=== PATIENT | female | born 1985 | race American Indian/Alaskan Native ===

== ENCOUNTER 2019-04-07 23:23 | Emergency (ER) | payer SELFPAY ==
[2019-04-08] MEDS ORDERED: IBUPROFEN 600 MG TAB PO ONE (00:04)
[2019-04-08] MEDS ORDERED: ACETAMINOPHEN 500 MG TAB PO ONE (00:04)
[2019-04-08] MEDS ORDERED: AMOXICILLIN/K CLAV 875/125MG TAB PO ONE (00:04)
[2019-04-08] MEDS ORDERED: NEOMY 3.5 MG/BACIT 400 UNITS/POLY B 5000 UNITS/GM OINT PACKET TP ONE (00:04)
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
[2019-04-08 02:36] VITALS: BP 146/94
== END 2019-04-08 01:50 | disposition home or self-care (01) ==
LOC: ED 23:23
DX: S00.81XA Abrasion of other part of head, initial encounter (principal); S40.812A Abrasion of left upper arm, initial encounter; Z79.899 Other long term (current) drug therapy; W50.3XXA Accidental bite by another person, initial encounter; Y93.89 Activity, other specified; Y92.89 Other specified places as the place of occurrence of the external cause; Y99.8 Other external cause status
CPT/HCPCS: 99283; A6250